=== PATIENT | female | born 1955 | race Caucasian/White ===

== ENCOUNTER → 2020-05-12 | Day surgery (SDC) | payer BC, OTHER ==
[~2020-05-12] MED LIST: AMLODIPINE BESYL5 MG PO; CYMBALTA60 MG PEG; FENTANYL CITRATE/PF 100MCG/2 ML INJ ONE; GABAPENTIN600 MG PO; GLUCAGON FOR INJ 1 MG VIAL ONE; HYOSCYAMINE 0.125 MG TAB ONE; METOPROLOL SUCC50 MG PO; MIDAZOLAM HCL 2 MG/2 ML VIAL ONE; MODAFINIL200 MG PO; PROMETHAZINE HC25 M1 PO; PROPOFOL IV EMULSION 10 MG/ML 20 ML VIAL ONE; ULTRAM50 MG PO
[2020-05-12 13:20] VITALS: BP 124/77
[2020-05-12 14:34] LABS: WBC,FECAL (FECAL LACTOFERRIN) POSITIVE (NEGATIVE)
--- NOTE | 2020-05-12 15:13 | Operative Report ---
DATE OF PROCEDURE: 05/12/2020 SURGEON: Sae Rodríguez MD PROCEDURE: An EGD with biopsies and colonoscopy with polypectomy and biopsies. INDICATIONS FOR EGD: Heartburn, excessive belching. INDICATIONS FOR COLONOSCOPY: Colorectal cancer screening, history of loose stools. MEDICATIONS: The patient was done under MAC. Please see anesthesiologist's note. PROCEDURE IN DETAIL: With the patient in left lateral decubitus position, flexible fiberoptic Olympus gastroscope was introduced into the esophagus under direct visualization without any difficulty. There was some patchy erythema noted in distal esophagus. Some focal nodularity was noted at the GE junction that was biopsied. The scope was then advanced with ease into the stomach traversing moderate-sized hiatal hernia. Minute nodules were noted in the hiatal hernia sac and biopsies were obtained. The patient is apparently status post Ryley-en-Y. Anastomosis was intact. Enteric loop was patent. Biopsies were obtained from the gastric stump. The scope was subsequently withdrawn. The patient tolerated the procedure well. IMPRESSION: 1. Distal esophagitis, mild. 2. Focal nodularity GE junction, biopsied. 3. Medium-sized hiatal hernia. Minute nodule in hiatal hernia sac biopsied. 4. Status post Ryley-en-Y. Anastomosis intact. PLAN: Follow up histology. Increase Nexium to 40 mg one p.o. a.c. b.i.d. The patient was then turned around after adequate lubrication of the anal canal. Flexible fiberoptic Olympus colonoscope was inserted into the rectum and advanced all the way to the cecum. Colon was excessively spastic and irritable and suboptimally visualized. An approximately 1 cm sessile polyp was noted in the cecal pouch and that was removed per hot snare polypectomy and site was hemo-clipped x2. An additional approximately 5 mm polyp was removed per cold snare polypectomy from the cecum also. The scope was then withdrawn slowly. An approximately 1 cm submucosal lesion was noted in the distal ascending colon, suspicious for a lipoma. Biopsies were obtained. One polyp was hot snared from the transverse colon. The descending grossly appeared to be within normal limits. Two polyps were hot biopsied from the sigmoid. The rectum grossly appeared to be within normal limits. The scope was then retroflexed into the distal rectum and small internal hemorrhoids were noted, none of which was actively bleeding. The scope was then straightened out, it was subsequently withdrawn. The patient tolerated procedure well. IMPRESSION: 1. Cecal polyps x2, 1 hot snared and hemo-clipped x2 and 1 cold snared. 2. Rule out lipoma, ascending colon. 3. Transverse colon polyp hot snared. 4. Sigmoid colon polyps x2, hot biopsied. 5. Internal hemorrhoids, none actively bleeding. PLAN: Follow up histology. Follow up stool studies. Start VSL#3 one p.o. b.i.d. If polyps stock turner to be benign, then the patient might benefit from a followup colonoscopy in 1 year as colon was suboptimally visualized due to the excessive irritability of the colon. Sae Rodríguez MD [facility] [place] [place] /[id number] cc: Segun Larson MD
[2020-05-13 15:20] LABS: C DIFFICILE TOXIN A&B AMP PROB NEGATIVE (NEGATIVE)
== END | disposition home or self-care (01) ==
LOC: OR 09:14
PROVIDERS: ATTEND Internal Medicine Gastroenterology
DX: Z12.11 Encounter for screening for malignant neoplasm of colon (principal); D12.0 Benign neoplasm of cecum; D12.3 Benign neoplasm of transverse colon; K58.9 Irritable bowel syndrome, unspecified; K31.89 Other diseases of stomach and duodenum; K20.9 Esophagitis, unspecified; K22.8 Other specified diseases of esophagus; K44.9 Diaphragmatic hernia without obstruction or gangrene; K21.9 Gastro-esophageal reflux disease without esophagitis; Z98.84 Bariatric surgery status; K64.8 Other hemorrhoids; G47.33 Obstructive sleep apnea (adult) (pediatric); I10 Essential (primary) hypertension; Z01.810 Encounter for preprocedural cardiovascular examination; Z01.812 Encounter for preprocedural laboratory examination; Z11.59 Encounter for screening for other viral diseases; Z68.42 Body mass index [BMI] 45.0-49.9, adult; Z80.0 Family history of malignant neoplasm of digestive organs
CPT/HCPCS: 43239; 45380; 45384; 45385; 83630; 83993; 87045; 87177; 87328; 87493; 93005; J1610; J2250; J2704; J3010; U0002